=== PATIENT | male | born 1995 | race African-American/Black ===

== ENCOUNTER 2017-08-10 11:42 | Emergency (ER) | payer MEDICAID ==
[~2017-08-10] VITALS: Ht 177.8 cm; Wt 59.0 kg
[2017-08-10 13:17] VITALS: BP 122/64
== END 2017-08-10 13:59 | disposition home or self-care (01) ==
LOC: ER 11:42
DX: S60.221A Contusion of right hand, initial encounter (principal); W22.8XXA Striking against or struck by other objects, initial encounter; Y93.89 Activity, other specified; Y99.8 Other external cause status; Y92.89 Other specified places as the place of occurrence of the external cause
CPT/HCPCS: 73130